=== PATIENT | male | born 1980 | race Caucasian/White ===

== ENCOUNTER 2018-09-05 22:48 | Inpatient (IN) ==
[2018-09-05] MEDS ORDERED: KETOROLAC 30 MG/ML VIAL IV STA (23:24)
[2018-09-05 23:35] LABS: Basophils # (auto) 0.02 K/uL (0-0.2); Basophils % (auto) 0.3 %; Eosinophils # (auto) 0.12 K/uL (0-0.5); Hematocrit (blood only) 37.7 % (42-52); Hemoglobin 13.2 g/dL (14.0-18.0); Immature Granulocytes # (auto) 0.01 K/uL (0.00-0.02); Immature Granulocytes % (auto) 0.2 %; Lymphocytes # (auto) 1.44 K/uL (1.2-3.4); Lymphocytes % (auto) 24.1 %; Mean Corpuscular Volume 92.4 fL (80-100); Mean Platelet Volume 9.5 fL (7.4-10.4); Monocytes % (auto) 11.7 %; Neutrophils # (auto) 3.69 K/uL (1.4-6.5); Neutrophils % (auto) 61.7 %; Platelet Count 201 K/uL (130-400); RDW Coefficient of Variation 13.3 % (11.5-14.5); Red Blood Count 4.08 M/uL (4.7-6.1); White Blood Count 5.98 K/uL (4.8-10.8)
[2018-09-05 23:43] LABS: Albumin Level 3.7 gm/dl (3.4-5.0); BUN Creatinine Ratio 10.4 (10-20); Calcium 8.6 mg/dl (8.5-10.1); Creatinine Clr Calc Pharmacy 107.9 ml/min; Est GFR (African American) 90.5; Est GFR (Non-African American) 78.1; Potassium 3.5 mmol/L (3.5-5.1)
[2018-09-05 23:46] LABS: Albumin Globulin Ratio 0.9 (0.9-2); Bilirubin,Total 0.8 mg/dl (0.2-1); Globulin 3.9 gm/dl (2.5-4.0); Total Protein 7.6 gm/dl (6.4-8.2)
[2018-09-06] MEDS ORDERED: IOVERSOL 100ml IV PRN (00:14)
--- NOTE | 2018-09-06 01:52 | Anesthesiology Consultation ---
Date of Service September 06, 2018 Assessment & Plan (1) Encounter for pre-operative examination: Chart Review Chart Review: Acceptable Risk for Surgery and Patient NOT seen in Pre Admission Testing Consults Requested none Proposed Anesthesia Anesthesia Type: General Risk / Benefits Reviewed With: PT / POA / Parent / Guardian, Accepts Plan and Informed Consent Obtained History Surgery Operation Date: 09/06/18 03:30 Proposed Procedures p Bowel Resection - Chloe Pabon MD Height/Weight Height: 6 ft 2 in Weight: 101.7 kg Allergies Allergy/AdvReac Type Severity Reaction Status Date / Time wool Allergy Intermediate FACE Verified 09/05/18 23:00 SWELLED UP AN Medications Home Medications Medication Instructions Recorded Confirmed Last Taken omeprazole 40 mg PO QAM 09/05/18 09/05/18 09/05/18 Active Medications Generic Name Dose Route Start Last Admin Trade Name Freq PRN Reason Stop Dose Admin Ioversol 100 ml 09/06/18 00:14 09/06/18 00:14 Optiray 320 100ml IV 09/10/18 00:13 92 ml ONCE PRN Administration Interaction Checking Past Medical History Medical History IBS (irritable bowel syndrome) Polydactylism Social History Smoking Status: Never smoker Physical Exam Vital Signs Last Vital Signs Temp 36.7 C 09/05/18 22:51 Pulse 78 09/06/18 02:49 Resp 18 09/06/18 02:49 BP 131/86 09/06/18 02:49 Pulse Ox 97 09/06/18 02:49 Testing Laboratory Results 09/05/18 23:02 09/05/18 23:02
[2018-09-06] MEDS ORDERED: LIDOCAINE HCL/D5W 2000 MG/500 ML BAG IV ONE (02:10)
[2018-09-06] MEDS ORDERED: ACETAMINOPHEN 1000 MG/100 ML IV IV ONE (02:11)
--- NOTE | 2018-09-06 02:19 | History & Physical Report ---
Date of Service September 06, 2018 Assessment & Plan (1) Foreign body in intestine: 37 yr old man with foreign body in small intestine most c/w ingestion of a bone. This has perforated lumen and is causing bowel inflammation. Explained that with the perforation, it is unlikely to pass on its own. Risks of doing nothing include worsening inflammation with larger bowel perforation. I would recommend exploratory laparotomy with partial small bowel resection and removal of the foreign body. Risks of bleeding, infection, hernia, bowel obstructions in future, ileus all discussed. He is willing to proceed and consent was signed. For OR alma. Expected 3-5 day hospital stay and 4-6 week recovery reviewed. Present on Admission?: Yes History of Present Illness Chief Complaint: left sided abdominal pain Primary Care Provider: NO PCP 37 yr old otherwise healthy male presents with left sided sharp abdominal pain going on for the last 1-2 days. About 1 week ago, had the flu and had some generalized abd pain which he attributed to his irritable bowel syndrome. By Thursday, flu symptoms had resolved. Thursday and Thursday, left sided pain returned with increased intensity. No radiation. Just a band of discomfort going up the left side but focal in the left lower abdomen. No exacerbating factors - not wo rse with eating. Not relieved by bowel movements. No fevers/ chills. No nausea or vomiting. Last meal was dinner around 7-8 pm. No change in bowel habits. Came to ER and CT scan shows small foreign body protruding from lumen of small intestine in left lower abdomen most c/w chicken bone. He does not recall eating chicken or anything containing bones recently. 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 Had his hands corrected with a total of 7 operations. Physical Exam Constitutional: WD/WN, vitals as above Eyes: PERRL, conjunctivae normal, anicteric sclerae ENMT: Ears: no hearing impairment Respiratory: normal respiratory effort, lungs clear to auscultation Cardiovascular: RRR, no murmur, no edema Gastrointestinal (Abdomen): Inspection/Auscultation: abdomen normal to inspection and normal bowel sounds; abdomen not distended Percussion/Palpation: + abdomen tender (left lower abdomen, mild tenderness); no guarding Musculoskeletal: no cyanosis or clubbing, extremities motor strength 5/5 Head/Neck/Chest: normocephalic and head atraumatic Neurologic: moves all extremities Psychiatric: A+Ox3, euthymic affect Results & Data Vital Signs (Past 12 Hours) Vital Signs Temp Pulse Pulse Resp BP BP Pulse Ox 09/06/18 01:43 72 18 131/86 97 09/06/18 00:17 57 L 18 122/78 97 09/05/18 22:51 36.7 C 81 16 121/81 95 Laboratory Results CBC normal Diagnostic Findings CT scan abd/ pelvis prelim read: small foreign body protruding from small bowel in left lower abdomen causing inflammation with thickening of bowel and fat stranding
[2018-09-06] MEDS ORDERED: LIDOCAINE HCL 2% 2 ML VIAL/AMP(20MG/ML) INFIL ONE (02:20)
[2018-09-06] MEDS ORDERED: ONDANSETRON INJ 2 MG/ML 2 ML VIAL ONE (02:20)
[2018-09-06] MEDS ORDERED: ROCURONIUM BROMIDE 10 MG/ML 5 ML VIAL ONE (02:20)
[2018-09-06] MEDS ORDERED: PROPOFOL IV EMULSION 10 MG/ML 20 ML VIAL IV ONE (02:20)
[2018-09-06] MEDS ORDERED: MIDAZOLAM HCL 1 MG/ML 2ML VIAL ONE (02:20)
[2018-09-06] MEDS ORDERED: DEXAMETHASONE SOD INJ 4 MG/ML VIAL ONE (02:20)
[2018-09-06] MEDS ORDERED: fentaNYL citrate 100 MCG/2 ML VIAL ONE ×2 (02:21→05:28)
[2018-09-06] MEDS ORDERED: KETAMINE HCL INJ 50 MG/ML 10 ML VIAL ONE ×3 (02:31→02:38)
[2018-09-06] MEDS ORDERED: BUPIVACAINE 0.5 % 5 MG/1 ML MPF 30ML VIAL ONE (02:38)
[2018-09-06] MEDS ORDERED: SUCCINYLCHOLINE CHLORIDE 20 MG/ML 10 ML VIAL ONE (03:04)
[2018-09-06 03:09] LABS: Appearance Urine Clear (Clear); Bilirubin Urine Negative (Negative); Blood Urine Negative (Negative); Color Urine Yellow; Glucose Urine UA Negative (Negative); Ketones Urine Negative (Negative); Leukocyte Esterase Urine Negative (Negative); Nitrite Urine Negative (Negative); Protein Urine Negative (Negative); Urobilinogen Urine Negative (Negative); pH Urine 6.5 (4.5-7.5)
[2018-09-06] MEDS ORDERED: CEFAZOLIN 2,000 MG/15 ML IV PUSH IV ONE (03:12)
[2018-09-06] MEDS ORDERED: NEOSTIGMINE METHYLSULFATE 5 MG/5 ML SYR ONE (04:20)
[2018-09-06] MEDS ORDERED: GLYCOPYRROLATE 0.2 MG/ML VIAL ONE (04:20)
--- NOTE | 2018-09-06 04:35 | Operative Report ---
Post Operative Report Pre & Post Diagnosis Operation Date: 09/06/18 03:30 Pre-Op Diagnosis: Foreign Body in Intestine, umbilical and supraumbilical hernias Post-Op Diagnosis: Foreign Body in Abdominal Cavity. umbilical and supraumbilical hernias Procedure Operation Date: 09/06/18 03:30 Actual Procedures p Exploratory Laparotomy with Removal of Foreign Body, suture repair of small intestine, primary repair of umbilical and supraumbilical hernias- Chloe Pabon MD Surgeon Chloe Pabon MD Shipping And Receiving Clerk none Estimated Blood Loss 0 Findings See Below (bristle brush in omentum extending into abdominal wall, no gross perforation of small bowel) Specimens hernia sac and foreign body c/w bristle brush Description of Procedure see operative report I attest to the content of the Intraoperative Record and any orders documented therein. Any exceptions are noted below.
[2018-09-06] MEDS ORDERED: HYDROmorphone INJ 2 MG/ML SYR/VIAL IV PRN (04:38)
[2018-09-06] MEDS ORDERED: PROMETHAZINE HCL 12.5 MG in SODIUM CHLORIDE 0.9% 50 ML IV PRN (04:38)
[2018-09-06] MEDS ORDERED: ONDANSETRON INJ 2 MG/ML 2 ML VIAL IV PRN ×2 (04:38→06:17)
[2018-09-06] MEDS ORDERED: ePHEDrine sulfate 50 MG/ML AMP IV PRN (04:38)
[2018-09-06] MEDS ORDERED: ATROPINE SULFATE 0.1 MG/ML 10ML SYR IV PRN (04:38)
[2018-09-06] MEDS ORDERED: fentaNYL citrate 100 MCG/2 ML VIAL IV PRN (04:38)
[2018-09-06] MEDS ORDERED: HYDROmorphone INJ 0.5 MG/0.5 ML SYR ONE ×2 (05:02→05:09)
--- NOTE | 2018-09-06 05:41 | Anesthesiology Progress Note ---
Date of Service September 06, 2018 Anesthesia Post Procedure Vital Signs Vital Signs: Temp Pulse Pulse Pulse Resp BP BP 09/06/18 05:32 68 18 132/85 09/06/18 05:15 36.4 C L 60 16 114/76 09/06/18 05:05 36.4 C L 58 L 18 113/76 09/06/18 04:55 36.4 C L 65 20 122/77 09/06/18 02:49 78 18 131/86 09/06/18 01:43 72 18 131/86 09/06/18 00:17 57 L 18 122/78 09/05/18 22:51 36.7 C 81 16 121/81 Pulse Ox 09/06/18 05:32 95 09/06/18 05:15 95 09/06/18 05:05 98 09/06/18 04:55 97 09/06/18 02:49 97 09/06/18 01:43 97 09/06/18 00:17 97 09/05/18 22:51 95 Pain Intensity Abdomen: Pain Intensity: 2 Transfer of Care Handoff Completed per policy Notes Mental Status: alert / awake / arousable and participated in evaluation Patient Amnestic to Procedure: Yes Nausea / Vomiting: adequately controlled Pain: adequately controlled Airway Patency, RR, SpO2: stable & adequate BP & HR: stable & adequate Hydration State: stable & adequate Anesthetic Complications: no major complications apparent and Pt Satisfied with anesthetic care
[2018-09-06] MEDS ORDERED: MoRPHine SULFATE 2 MG/ML CARP IV PRN ×2 (06:17)
[2018-09-06] MEDS ORDERED: OXYCODONE/ACETAMINOPHEN 5mg/325mg TAB PO PRN (06:17)
[2018-09-06] MEDS ORDERED: ACETAMINOPHEN 325 MG TAB PO PRN (06:17)
[2018-09-06] MEDS ORDERED: MoRPHine SULFATE 4 MG/ML 1 ML CARP\\VIAL IV PRN (06:17)
[2018-09-06] MEDS ORDERED: IBUPROFEN 200 MG TAB PO PRN (06:17)
--- NOTE | 2018-09-06 06:32 | Emergency Department Note ---
Entered by Risa David acting as a scribe for Rosaura Major DO History of Present Illness General Chief complaint: Abdominal Pain Stated complaint: ABDOMINAL PAIN MOSTLY L SIDE Time Seen by Provider: 09/05/18 23:01 Source: patient Limitations: no limitations History of Present Illness Onset (ago): day(s) (2-3) Location: abdomen (left) Pain Consistency: + constant Maximum Pain Intensity: 8 Quality: + other (feeling like a "knife" ) Relieved By: + other ( "laying in a position helps" ) Associated symptoms: + fever/chills The patient is a 37 year old male who presents to the ED complaining of constant left-sided abdominal pain that began 2-3 days ago. The patient describes the pain as feeling like a "knife." He complains of flu-like symptoms, including chills, feeling feverish, and diaphoresis, that began 7 days ago. The patient notes that the fever/chills is now resolved. He notes that he felt "pins and needles" in his chest a few days ago, and the pain "moved to the left abdomen." The patient complains of now relieved lower extremity cramping below the knees, dysuria, diarrhea, nausea, and intermittent diaphoresis. He denies any vomiting, hematochezia, sore throat, and cough. He notes that "laying in a position helps." The patient reports that he ate normally over the past few days, and he has been "about the same level of gassy." He notes a history of IBS. Home Medications Home Medications Medication Instructions Recorded Confirmed Type omeprazole 40 mg PO QAM 09/05/18 09/05/18 History Allergies Allergy/AdvReac Type Severity Reaction Status Date / Time wool Allergy Intermediate FACE Verified 09/05/18 23:00 SWELLED UP AN Past Med/Surg History Medical History IBS (irritable bowel syndrome) Polydactylism Surgical History Hx of hand surgery Social History Feels Safe at Home: Yes Smoking Status: Never smoker Review of Systems See HPI for pertinent positives & negatives. and A total of 10 systems reviewed and were otherwise negative Physical Exam Vital Signs Vital Signs - 24 hr 09/05/18 22:51 09/06/18 00:17 09/06/18 01:43 Temperature 36.7 C Temperature Source Oral Sepsis Recent Fever Within 48 Hours No Sepsis New/Unexplained Change in Mental Status No Sepsis Action Taken by Nursing No Action Required Pulse Rate 81 Pulse Rate [Apical] Pulse Rate [Right Finger] 57 L 72 Respiratory Rate 16 18 18 Respiratory Effort / Characteristics Respiratory Depth Respiratory Pattern Blood Pressure 121/81 Blood Pressure [Left Arm] 122/78 131/86 Blood Pressure Mean 94 Blood Pressure Mean [Left Arm] 92 101 Blood Pressure Position Sitting Blood Pressure Position [Left Arm] Sitting Pulse Oximetry 95 97 97 Oxygen Delivery Method Room Air Room Air Oxygen Flow Rate 09/06/18 02:49 09/06/18 03:35 09/06/18 04:55 Temperature 36.4 C L Temperature Source Oral Sepsis Recent Fever Within 48 Hours Sepsis New/Unexplained Change in Mental Status Sepsis Action Taken by Nursing Pulse Rate 78 Pulse Rate [Apical] 61 65 Pulse Rate [Right Finger] Respiratory Rate 18 20 20 Respiratory Effort / Characteristics Non-Labored Spontaneous Non-Labored Spontaneous Respiratory Depth Normal Normal Respiratory Pattern Regular Regular Blood Pressure 131/86 Blood Pressure [Left Arm] 124/84 122/77 Blood Pressure Mean Blood Pressure Mean [Left Arm] 97 92 Blood Pressure Position Blood Pressure Position [Left Arm] Lying Pulse Oximetry 97 94 97 Oxygen Delivery Method Room Air Room Air Oxymask Oxygen Flow Rate 5 09/06/18 05:05 09/06/18 05:15 09/06/18 05:32 Temperature 36.4 C L 36.4 C L Temperature Source Oral Oral Sepsis Recent Fever Within 48 Hours Sepsis New/Unexplained Change in Mental Status Sepsis Action Taken by Nursing Pulse Rate Pulse Rate [Apical] 58 L 60 68 Pulse Rate [Right Finger] Respiratory Rate 18 16 18 Respiratory Effort / Characteristics Non-Labored Spontaneous Non-Labored Spontaneous Non-Labored Spontaneous Respiratory Depth Normal Normal Normal Respiratory Pattern Regular Regular Regular Blood Pressure Blood Pressure [Left Arm] 113/76 114/76 132/85 Blood Pressure Mean Blood Pressure Mean [Left Arm] 88 88 100 Blood Pressure Position Blood Pressure Position [Left Arm] Lying Lying Pulse Oximetry 98 95 95 Oxygen Delivery Method Oxymask Oxymask Room Air Oxygen Flow Rate 5 2 HEENT: Head - normocephalic and atraumatic Pupils are equal, round, and reactive to light. Extraocular eye muscles are intact, and sclera are anicteric. Nose - moist nasal mucosa without discharge. Mouth - moist buccal mucosa. Oropharynx is nonerythematous and there is no tonsillar exudate or edema noted. Neck: Supple; no JVD, nuchal rigidity, cervical lymphadenopathy. Heart: Regular rate and rhythm. There is a normal S1 and S2 with no murmurs, clicks, or gallops appreciated. Lungs: Clear to auscultation bilaterally with no wheezes, rales, or rhonchi. Abdomen: Soft, nondistended, with good bowel sounds. There are no palpable pulsatile masses or hepatosplenomegaly. There is no guarding, rigidity, or rebound noted. Pin-point tenderness just left of the umbilicus. Extremities: No evidence of cyanosis, clubbing, or edema. There are easily palpable peripheral pulses. Skin: warm and dry with good turgor and no rashes. Course 2314: The patient was evaluated in room C09. A complete history and physical exam was performed. An IV lock was initiated and labs were drawn as above. 2324: Toradol 30 mg IV. The patient went for CT scan of the abdomen/pelvis as described above. 0126: I updated the patient on his results. He denies eating any fish or chicken with bones. The patient is more comfortable at this time. 0134: I spoke with Chloe Pabon, [facility] general surgery, about the patients case. She will evaluate the patient. Consultations Consultation #1: I spoke with Chloe Pabon, [facility] general surgery, about the patients case. Time: 01:34 Administered Medications Ioversol (Optiray 320 100ml) 100 ml IV ONCE PRN PRN Reason: Interaction Checking Stop: 09/10/18 00:13 Last Admin: 09/06/18 00:14 Dose: 92 ml Documented by: [id number] Discontinued Medications Bupivacaine HCl (Marcaine 0.5% Mpf) Confirm Administered Dose 30 ml .ROUTE .STK- MED ONE Stop: 09/06/18 02:39 Last Admin: 09/06/18 04:10 Dose: 30 ml Documented by: [id number] Cefazolin Sodium (Ancef 2000mg) Confirm Administered Dose 2,000 mg IV .STK-MED ONE Stop: 09/06/18 03:13 Last Admin: 09/06/18 03:20 Dose: 2,000 mg Documented by: [id number] Fentanyl Citrate (Fentanyl Citrate) 50 mcg IV Q5M PRN PRN Reason: PACU Use Only-Pain Stop: 09/06/18 09:39 Last Admin: 09/06/18 05:31 Dose: 50 mcg Documented by: [id number] Hydromorphone HCl (Dilaudid) 0.5 mg IV Q5M PRN PRN Reason: PACU Use Only-Pain Stop: 09/06/18 09:39 Last Admin: 09/06/18 05:09 Dose: 0.5 mg Documented by: [id number] Hydromorphone HCl (Dilaudid) Confirm Administered Dose 0.5 mg .ROUTE .STK-MED ONE Stop: 09/06/18 05:03 Last Admin: 09/06/18 05:04 Dose: 0.5 mg Documented by: [id number] Ketorolac Tromethamine (Toradol) 30 mg IV NOW STA Stop: 09/05/18 23:25 Last Admin: 09/05/18 23:31 Dose: 30 mg Documented by: [id number] Medical Decision Making Differential Diagnosis The differential diagnosis includes: Colitis, diverticulitis, abdominal wall pain, and pyelonephritis. Medical Records Attestation: I reviewed the patient's medical records. Home Medications Current Medication List: was personally reviewed by me Laboratory Data Attestation: I reviewed the patient's lab results. Result diagrams: 09/05/18 23:02 09/05/18 23:02 Lab Results 09/05/18 09/05/18 09/06/18 Range/Units 23:02 23:02 02:25 WBC 5.98 (4.8-10.8) K/uL RBC 4.08 L (4.7-6.1) M/uL Hgb 13.2 L (14.0-18.0) g/dL Hct 37.7 L (42-52) % MCV 92.4 (80-100) fL MCH 32.4 (25-34) pg MCHC 35.0 (32-36) g/dL RDW Std Deviation 45.0 (36.4-46.3) fL RDW Coeff of Vladimir 13.3 (11.5-14.5) % Plt Count 201 (130-400) K/uL MPV 9.5 (7.4-10.4) fL Immature Gran % (Auto) 0.2 % Neut % (Auto) 61.7 % Lymph % (Auto) 24.1 % Elk % (Auto) 11.7 % Eos % (Auto) 2.0 % Baso % (Auto) 0.3 % Immature Gran # (Auto) 0.01 (0.00-0.02) K/uL Neut # (Auto) 3.69 (1.4-6.5) K/uL Lymph # (Auto) 1.44 (1.2-3.4) K/uL Elk # (Auto) 0.70 H (0.11-0.59) K/uL Eos # (Auto) 0.12 (0-0.5) K/uL Baso # (Auto) 0.02 (0-0.2) K/uL Sodium 139 (136-145) mmol/L Potassium 3.5 (3.5-5.1) mmol/L Chloride 104 (98-107) mmol/L Carbon Dioxide 34 H (21-32) mmol/L Anion Gap 1.0 L (3-11) BUN 12 (7-18) mg/dl Creatinine 1.17 (0.6-1.4) mg/dl Est Cr Clr Drug Dosing 107.9 ml/min Est GFR ( Amer) 90.5 Est GFR (Non-Af Amer) 78.1 BUN/Creatinine Ratio 10.4 (10-20) Glucose 121 H (70-99) mg/dl Calcium 8.6 (8.5-10.1) mg/dl Total Bilirubin 0.8 (0.2-1) mg/dl AST 24 (15-37) U/L ALT 45 (12-78) U/L Alkaline Phosphatase 107 (45-117) U/L Total Protein 7.6 (6.4-8.2) gm/dl Albumin 3.7 (3.4-5.0) gm/dl Globulin 3.9 (2.5-4.0) gm/dl Albumin/Globulin Ratio 0.9 (0.9-2) Lipase 242 (73-393) U/L Urine Color Yellow Urine Appearance Clear (Clear) Urine pH 6.5 (4.5-7.5) Ur Specific [place] 1.010 (1.000-1.030) Urine Protein Negative (Negative) Urine Glucose (UA) Negative (Negative) Urine Ketones Negative (Negative) Urine Blood Negative (Negative) Urine Nitrite Negative (Negative) Urine Bilirubin Negative (Negative) Urine Urobilinogen Negative (Negative) Ur Leukocyte Esterase Negative (Negative) Imaging Data Radiologist's Impression: Radiology results as stated below per my review and the radiologist's interpretation: CT ABDOMEN & PELVIS With Contrast: There is fat stranding in the left lower abdomen associated with loops of small bowel. There is a linear foreign body which extends beyond the lumen of a small bowel loop in left lower abdomen (image [id number], series 3), measuring approximately 1.5 cm long. It is calcific in density and likely represents an ingested bone, which has perforated through the lumen of small bowel loop. Short segment of small bowel in this region is mildly dilated (image 42, series 2), likely related to ileus or peristalsis as remainder of bowel is nondilated. Trace free fluid in pelvis. No free air. Solid organs are unremarkable. Minimal left basilar atelectasis. Fat-containing umbilical and supraumbilical hernia. L1-L2 degenerative disc disease. Radiologist: Theo Colvin MD Study ready at 00:17 and initial results transmitted at 01:10. Blood Pressure Blood Pressure Findings: Normal blood pressure Blood Pressure Disposition: did not require urgent referral MDM Narrative The patient is a 37 year old male who presents to the ED complaining of constant left-sided abdominal pain that began 2-3 days ago. The patient went for CT scan of the abdomen/pelvis which showed evidence of a perforated small bowel from a foreign body thought to be calcified or a bone. There is fat stranding around this area. The case was discussed with Dr. Pabon. She will take the patient to the OR emergently for evaluation. Impression & Plan Perforated small intestine Critical Care Time Critical Care Time: Yes Total Critical Care Time: 60 I have personally spent 60 minutes of critical care time in the direct management of this patient. This includes bedside care, interpretation of diagnostic studies, and testing, discussion with consultants, patient, and family members, and other required patient management activities. This 60 minutes is in excess of all separately billable procedures. Discharge Plan Visit Data *Final* Discharge Date/Time: 09/06/18 02:49 Chief Complaint: Abdominal Pain Stated Complaint: ABDOMINAL PAIN MOSTLY L SIDE ED Provider: Rosaura Major Discharge Problem: Perforated small intestine Patient Disposition: Admitted As Inpatient Discharge Instructions Interventions: ED Discharge Assessment Last Done: 09/06/18 02:49 The scribe's documentation has been prepared under my direction and personally reviewed by me in its entirety. I confirm that the note above accurately reflects all work, treatment, procedures, and medical decision making performed by me.
[2018-09-06] MEDS: LACTATED RINGER'S 1,000 ML IV SCH ×2 (06:51→16:39)
--- NOTE | 2018-09-06 07:08 | CT Scan Report ---
CT abd pelvis IV con only CT DOSE: 637.48 mGy.cm HISTORY: Pain eval for diverticulitis TECHNIQUE: Multiaxial CT images of the abdomen and pelvis were performed following the use of intrave nous contrast. A dose lowering technique was utilized adhering to the principles of ALARA. COMPARISON STUDY: None. FINDINGS: Lung bases are clear. The liver spleen and pancreas are unremarkable. Kidneys enhance uniformly. There is moderate wall edematous change with moderate infiltrative and/or inflammatory change of the small bowel in the left central abdominal region. Within the left anterior abdomen image 256 is a demonstrated a 1.5 cm linear object extending through the bowel lumen. This potentially represents a perforated foreign body. No evidence for abscess collection or obstruction. IMPRESSION: 1. Linear perforated foreign body traversing a loop of small bowel left anterior mid abdominal region 2. This is best seen in image 256. 3. Moderate reactive wall edema with moderate localized infiltrative change of the fat surrounding se veral loops of small bowel within the left lower quadrant 4. No evidence for drainable abscess or collection. The above report was generated using voice recognition software. It may contain grammatical, syntax or spelling errors. Electronically signed by: Dilip Sabillon M.D. 09/06/2018 7:07 AM
[2018-09-06] MEDS: PANTOprazole 40 MG TAB PO SCH (07:51)
[2018-09-06] MEDS: KETOROLAC TROMETHAMINE 15 MG/ML VIAL IV PRN ×3 (08:15→23:20)
[2018-09-06] MEDS: AMPICILLIN/SULBACTAM SOD 1,500 MG in 0.9 % SODIUM CHLORIDE 100 ML IV SCH ×3 (09:42→21:14)
[2018-09-06] MEDS: OXYCODONE/ACETAMINOPHEN 5mg/325mg TAB PO PRN ×3 (10:23→19:33)
--- NOTE | 2018-09-06 10:54 | Operative Report ---
DATE OF OPERATION: 09/06/2018 PREOPERATIVE DIAGNOSES: Left-sided abdominal pain with foreign body in the intestine and also umbilical and supraumbilical hernia. POSTOPERATIVE DIAGNOSES: Umbilical and supraumbilical fat-containing hernias, bristle brush and omentum protruding into the abdominal wall, mildly inflamed loop of small bowel. OPERATIVE PROCEDURE: Exploratory laparotomy, primary repair of umbilical and supraumbilical hernia, removal of foreign body and intra-abdominal cavity, suture repair of intestine. SURGEON: Chloe Pabon MD SHIPYARD PAINTER APPRENTICE: None. ANESTHESIA: General endotracheal anesthesia. ESTIMATED BLOOD LOSS: Zero mL. INTRAVENOUS FLUIDS: 600 mL URINE OUTPUT: None recorded. SPECIMENS: Foreign body, hernia sac. INDICATIONS: Mr. Em is a 37-year-old gentleman who presented with left-sided abdominal pain going on for a few days. Imaging showed a foreign body that appeared to be protruding out of the small bowel into the abdominal wall on the left side. He was counseled regarding the need for exploratory laparotomy. In addition, he was noted to have hernias in the midline around the umbilicus on CT and exam. Consent was signed. DESCRIPTION OF PROCEDURE: The patient received Ancef preoperatively, after the induction of general endotracheal anesthesia and placed in sequential compression devices, his abdomen was clipped and then sterilely prepped and draped. A midline incision was made. The supraumbilical and umbilical hernias were identified. The preperitoneal fat that had herniated through was dissected free and followed back to their fascial defects. The fascia was incised in the midline connecting both defect as well as opening into the abdominal cavity. The initial inspection of the abdominal cavity revealed no evidence of free air. There was no evidence of any contamination. Upon lifting the left-sided abdominal wall, a loop of omentum could be seen stuck to the left-sided abdominal wall in this area. There was a bristle brush poking through the omentum into the abdominal wall. This was removed and the small bowel was then run. There was a 3 cm section that was mildly inflamed that appeared as though the bristle brush had likely worked its way through this section. However, there was only a needlepoint area that could be visualized, that was not leaking and appeared to have already sealed itself off to be on the safe side. This was reinforced with interrupted 3-0 Vicryl stitches reapproximating the serosa on each healthy side over the area in a transverse fashion so as to not narrow the lumen. The small bowel otherwise appeared to be completely viable and this was placed back into the peritoneal cavity. The abdomen was irrigated. There was no evidence of any leakage noted. A 30 mL of 0.5% Marcaine were injected for local anesthesia. The fascia was repaired primarily with a looped and #1 PDS suture reapproximating the midline over the areas of the prior hernias. The wound was irrigated. The skin was loosely closed with jean claude. Sterile dressing was applied. He was awakened and taken to recovery in stable condition. I attest to the content of the Intraoperative Record and any orders documented therein. Any exception s are noted below.
--- NOTE | 2018-09-06 14:43 | Surgery Progress Note ---
Date of Service pt is doing fine, less abdominal pain, not pass gas yet, September 06, 2018 Assessment & Plan (1) Foreign body in intestine: 37 yr old man with foreign body in small intestine most c/w ingestion of a bone. This has perforated lumen and is causing bowel inflammation. Explained that with the perforation, it is unlikely to pass on its own. Risks of doing nothing include worsening inflammation with larger bowel perforation. I would recommend exploratory laparotomy with partial small bowel resection and removal of the foreign body. Risks of bleeding, infection, hernia, bowel obstructions in future, ileus all discussed. He is willing to proceed and consent was signed. For OR tonight. Expected 3-5 day hospital stay and 4-6 week recovery reviewed. 09/06/20182: 43pm doing fine, walk on hallway, will F/U Physical Exam Constitutional: WD/WN, vitals as above well developed and well nourished Neck: trachea midline, no thyromegaly Respiratory: normal respiratory effort, lungs clear to auscultation normal respiratory effort Cardiovascular: RRR, no murmur, no edema Rate/Rhythm: regular rate and regular rhythm Gastrointestinal (Abdomen): soft, no distend, incision intact, no redness, no drainage Neurologic: awake Psychiatric: Orientation: alert and oriented x 3 Results & Data Vital Signs (Past 12 Hours) Vital Signs Temp Pulse Pulse Pulse Resp BP BP 09/06/18 11:00 36.5 C 55 L 16 128/84 09/06/18 09:00 64 16 09/06/18 08:21 69 16 128/84 09/06/18 07:00 36.4 C L 58 L 16 09/06/18 06:30 36.7 C 57 L 18 09/06/18 06:20 36.6 C 60 20 09/06/18 05:32 68 18 132/85 09/06/18 05:15 36.4 C L 60 16 114/76 09/06/18 05:05 36.4 C L 58 L 18 113/76 09/06/18 04:55 36.4 C L 65 20 122/77 09/06/18 03:35 61 20 124/84 09/06/18 02:49 78 18 131/86 BP Pulse Ox 09/06/18 11:00 94 09/06/18 09:00 138/92 94 09/06/18 08:21 96 07/01/19 07:00 115/70 93 09/06/18 06:30 119/73 94 09/06/18 06:20 115/73 94 09/06/18 05:32 95 09/06/18 05:15 95 09/06/18 05:05 98 09/06/18 04:55 97 09/06/18 03:35 94 09/06/18 02:49 97
[2018-09-07] MEDS: OXYCODONE/ACETAMINOPHEN 5mg/325mg TAB PO PRN ×5 (02:18→22:14)
[2018-09-07] MEDS: LACTATED RINGER'S 1,000 ML IV SCH ×3 (02:19→20:38)
[2018-09-07] MEDS: AMPICILLIN/SULBACTAM SOD 1,500 MG in 0.9 % SODIUM CHLORIDE 100 ML IV SCH (03:33)
--- NOTE | 2018-09-07 07:36 | Anesthesiology Progress Note ---
Date of Service September 07, 2018 Anesthesia Post Procedure Vital Signs Vital Signs: Temp Pulse Resp BP BP Pulse Ox 09/07/18 02:55 36.6 C 64 16 117/81 95 09/06/18 23:15 36.7 C 64 16 112/77 96 09/06/18 19:35 36.6 C 66 16 127/77 96 09/06/18 15:23 36.7 C 66 16 117/74 95 09/06/18 11:00 36.5 C 55 L 16 128/84 94 09/06/18 09:00 64 16 138/92 94 09/06/18 08:21 69 16 128/84 96 Pain Intensity Abdomen: Pain Intensity: 3 Notes Mental Status: alert / awake / arousable and participated in evaluation Nausea / Vomiting: adequately controlled Pain: adequately controlled Airway Patency, RR, SpO2: stable & adequate BP & HR: stable & adequate Hydration State: stable & adequate Anesthetic Complications: Pt Satisfied with anesthetic care
[2018-09-07] MEDS: PANTOprazole 40 MG TAB PO SCH (09:06)
--- NOTE | 2018-09-07 14:41 | Surgery Progress Note ---
Date of Service pt is doing better, passed gas, no abdominal pain, no fever. September 07, 2018 Assessment & Plan (1) Foreign body in intestine: 37 yr old man with foreign body in small intestine most c/w ingestion of a bone. This has perforated lumen and is causing bowel inflammation. Explained that with the perforation, it is unlikely to pass on its own. Risks of doing nothing include worsening inflammation with larger bowel perforation. I would recommend exploratory laparotomy with partial small bowel resection and removal of the foreign body. Risks of bleeding, infection, hernia, bowel obstructions in future, ileus all discussed. He is willing to proceed and consent was signed. For OR tonight. Expected 3-5 day hospital stay and 4-6 week recovery reviewed. 09/06/20182: 43pm doing fine, walk on hallway, will F/U 09/07/2018 2:40PM, doing fine, clear diet possible D/C home tomorrow repeat labs in am Physical Exam Constitutional: WD/WN, vitals as above well developed and well nourished ENMT: external ear and nose normal, oropharynx normal Respiratory: normal respiratory effort, lungs clear to auscultation Cardiovascular: RRR, no murmur, no edema Gastrointestinal (Abdomen): soft, ND, NT, BS + incision intact Neurologic: awake Psychiatric: Orientation: alert and oriented x 3 Results & Data Vital Signs (Past 12 Hours) Vital Signs Temp Pulse Resp BP BP Pulse Ox 09/07/18 07:02 36.7 C 58 L 16 122/83 95 09/07/18 02:55 36.6 C 64 16 117/81 95
[2018-09-07] MEDS: KETOROLAC TROMETHAMINE 15 MG/ML VIAL IV PRN ×2 (16:18→22:14)
[2018-09-08] MEDS: LACTATED RINGER'S 1,000 ML IV SCH (05:42)
[2018-09-08] MEDS: OXYCODONE/ACETAMINOPHEN 5mg/325mg TAB PO PRN ×2 (07:38→11:53)
[2018-09-08] MEDS: PANTOprazole 40 MG TAB PO SCH (07:38)
[2018-09-08] MEDS: KETOROLAC TROMETHAMINE 15 MG/ML VIAL IV PRN (07:38)
[2018-09-08 07:56] LABS: Basophils # (auto) 0.02 K/uL (0-0.2); Basophils % (auto) 0.5 %; Eosinophils # (auto) 0.07 K/uL (0-0.5); Eosinophils % (auto) 1.8 %; Hematocrit (blood only) 33.3 % (42-52); Hemoglobin 11.5 g/dL (14.0-18.0); Immature Granulocytes # (auto) 0.01 K/uL (0.00-0.02); Immature Granulocytes % (auto) 0.3 %; Lymphocytes % (auto) 31.4 %; Mean Corpuscular Hgb Conc 34.5 g/dL (32-36); Mean Platelet Volume 9.4 fL (7.4-10.4); Monocytes % (auto) 10.5 %; Neutrophils # (auto) 2.12 K/uL (1.4-6.5); Neutrophils % (auto) 55.5 %; Platelet Count 175 K/uL (130-400); RDW Coefficient of Variation 13.2 % (11.5-14.5); RDW Standard Deviation 45.1 fL (36.4-46.3); Red Blood Count 3.58 M/uL (4.7-6.1); White Blood Count 3.82 K/uL (4.8-10.8)
[2018-09-08 08:35] LABS: Bilirubin,Total 0.6 mg/dl (0.2-1); Calcium 8.8 mg/dl (8.5-10.1); Creatinine Clr Calc Pharmacy 126.9 ml/min; Est GFR (African American) 105.6; Est GFR (Non-African American) 91.1; Globulin 2.9 gm/dl (2.5-4.0); Total Protein 5.9 gm/dl (6.4-8.2)
--- NOTE | 2018-09-08 10:56 | Surgery Progress Note ---
Date of Service pt is doing fine, passed BM, no abdominal pain, he tolerated diet, no nausea, no vomiting, September 08, 2018 Assessment & Plan (1) Foreign body in intestine: 37 yr old man with foreign body in small intestine most c/w ingestion of a bone. This has perforated lumen and is causing bowel inflammation. Explained that with the perforation, it is unlikely to pass on its own. Risks of doing nothing include worsening inflammation with larger bowel perforation. I would recommend exploratory laparotomy with partial small bowel resection and removal of the foreign body. Risks of bleeding, infection, hernia, bowel obstructions in future, ileus all discussed. He is willing to proceed and consent was signed. For OR tonight. Expected 3-5 day hospital stay and 4-6 week recovery reviewed. 09/06/20182: 43pm doing fine, walk on hallway, will F/U 09/07/2018 2:40PM, doing fine, clear diet possible D/C home tomorrow repeat labs in am 09/08/2018 10:55am pt wants to go home today, the post-op care instruction was given, F/U me in 1-2 weeks, Physical Exam Constitutional: WD/WN, vitals as above well developed and well nourished ENMT: external ear and nose normal, oropharynx normal Neck: trachea midline, no thyromegaly Respiratory: normal respiratory effort, lungs clear to auscultation normal respiratory effort Cardiovascular: RRR, no murmur, no edema Rate/Rhythm: regular rate and regular rhythm Gastrointestinal (Abdomen): normal bowel sounds, soft, nontender, no hepatosplenomegaly Inspection/Auscultation: abdomen normal to inspection Percussion/Palpation: abdomen soft NT, ND incidion intact, no redness, Neurologic: awake Psychiatric: Orientation: alert and oriented x 3 Results & Data Vital Signs (Past 12 Hours) Vital Signs Temp Pulse Resp BP Pulse Ox 09/08/18 07:32 36.7 C 48 L 16 121/83 95 09/07/18 23:32 36.6 C 57 L 16 124/81 94 Laboratory Results Abnormal lab results 09/08/18 09/08/18 Range/Units 07:27 07:27 WBC 3.82 L (4.8-10.8) K/uL RBC 3.58 L (4.7-6.1) M/uL Hgb 11.5 L (14.0-18.0) g/dL Hct 33.3 L (42-52) % BUN/Creatinine Ratio 9.0 L (10-20) AST 14 L (15-37) U/L Total Protein 5.9 L (6.4-8.2) gm/dl Albumin 3.0 L (3.4-5.0) gm/dl
--- NOTE | 2018-09-09 01:34 | Discharge Summary ---
DATE OF ADMISSION: 09/06/2018 DATE OF DISCHARGE: 09/08/2018 ADMITTING DIAGNOSIS: Foreign body on the abdomen. DISCHARGE DIAGNOSIS: Foreign body on the abdomen. OPERATION: Exploratory laparotomy with removal of foreign body from small bowel and suture repair of small bowel by surgeon Dr. Chloe Pabon. DETAILS OF DISCHARGE SUMMARY: This is a 37-year-old gentleman who presented to the ED with abdominal pain. The patient had a CT scan diagnosis of foreign body in small bowel and Dr. Pabon took the patient to the OR for exploratory laparotomy with removal of foreign body from small bowel and suture repair of small bowel. The patient tolerated the procedure well and he tolerated his diet and no nausea, no vomiting, passed gas and passed stool. PHYSICAL EXAMINATION: VITAL SIGNS: Temperature is 36.7, heart rate 48, respiratory rate is 16, blood pressure 121/83, O2 saturation 95% on room air. GENERAL: The patient is alert, awake, oriented x3. HEENT: With normal limitation. NEUROLOGIC: Exam intact. NECK: No JVD. CHEST: Bilateral lung sounds clear. HEART: Normal S1, S2. No murmur. ABDOMEN: Soft, nondistended. Dressing intact. No redness. No drainage, no tenderness. EXTREMITIES: No edema. PLAN: The patient wanted to go home today and we gave patient postop care instructions. I will follow up the patient in 1-2 weeks. The patient understands.
== END 2018-09-08 12:06 | disposition home or self-care (01) | DRG 346 ==
LOC: ED 22:48 → 3N 09-06 04:35